=== PATIENT | male | born 1960 | race Caucasian/White ===

== ENCOUNTER → 2024-08-24 08:24 | Outpatient (REF) | payer OTHER, SELFPAY | LOC: PAVMRI 08:24 | PROVIDERS: ATTENDING PHYSICIAN Internal Medicine Clinical Cardiac Electrophysiology; FAMILY PHYSICIAN Family Medicine | DX: I44.7 Left bundle-branch block, unspecified (principal) | CPT/HCPCS: 75561; 75565; A9585 ==